=== PATIENT | female | born 1955 | race Two or more races ===

== ENCOUNTER 2018-02-17 05:45 | Day surgery (SDC) | payer OTHER ==
[~2018-02-17 05:45] MED LIST: ESTRACE1 MG
== END 2018-02-17 10:50 | disposition home or self-care (01) ==
LOC: CIR.AMB 05:45
DX: M75.121 Complete rotator cuff tear or rupture of right shoulder, not specified as traumatic (principal); S46.211A Strain of muscle, fascia and tendon of other parts of biceps, right arm, initial encounter